=== PATIENT | female | born 1990 | race Caucasian/White ===

== ENCOUNTER 2018-04-17 21:40 | Emergency (ER) | END 2018-04-17 22:11 | disposition left against medical advice (07) ==

== ENCOUNTER 2018-12-17 14:13 | Emergency (ER) | payer OTHER ==
[~2018-12-17] VITALS: Ht 160 cm; Wt 51.2 kg
[~2018-12-17 14:13] MED LIST: NAPR-985 PO
[2018-12-17 14:22] VITALS: BP 128/71; PULSE 88; RESP 18; Ht 160 cm; Wt 51.2 kg
--- NOTE | 2018-12-17 15:21 | ERD ---
ER Documentation Chief Complaint Chief Complaint shooting pain in left arm since yesterday, denies injury HPI 28-year-old female with past medical history of anxiety presents with complaint of left arm pain since yesterday. Describes shooting pain up her left arm with intermittent numbness and tingling. She denies recent fall or injury. States she has been followed by PMD and has commenced work-up for some type of autoimmune disease questionable fibromyalgia. Has an upcoming appointment. Also with complaint of single episode of midsternal chest pain last night. States that she felt she was having anxiety attack. At time of evaluation patient in no acute distress answering all questions appropriately. She is concerned and asking for EKG as well as Henderson pill for her pain symptoms. ROS All systems reviewed and are negative except as per history of present illness. 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 Const: Well nourished, well developed, appears stated age Eyes: PERRL, no conjunctival injection HENT: NCAT, Neck supple without meningismus CV: RRR, Warm, well-perfused extremities RESP: CTAB, Unlabored respiratory effort GI: soft, non-tender, non-distended, no masses MSK: No gross deformities appreciated, left upper extremity SI LT, full range of motion, 5 out of 5 strength, good handgrip, distal pulses palpable external, negative Tinel sign Skin: Warm, dry. No rashes Neuro: grossly non focal Psych: Appropriate mood and affect. Results 24 hrs Current Medications Medications Dose Sig/Jordan Start Time Status Last (Trade) Ordered Route PRN Stop Time Admin Dose Reason Admin 1 tab ONCE ONCE 12/17/18 DC 12/17/18 Acetaminophen PO 15:30 15:19 / 12/17/18 15:31 Hydrocodone Bitart (Henderson (5/325)) Procedures/MDM 28-year-old female presents with complaint of left arm pain. Denies any history of injuries or fall. I have low suspicion for any acute process warranting further emergent care work-up. Patient is following with her PMD for work-up of autoimmune disease. She exhibits no symptoms consistent with such a diagnosis and just does not warrant further emergent work-up in this ED. EKG reviewed by myself and attending physician, no overt evidence of contiguous ST segment elevations, low suspicion for acute MD. No overt tachy- or bradydysrhythmias. Low suspicion for WPW, long QT, HOCM, Brugada after EKG review. DISPOSITION PLAN: We discussed follow up with the patient's primary care doctor within 24 to 48 hours. Patient counseled regarding my diagnostic impression and care plan. Prior to discharge all questions answered. Pt agrees with treatment plan and understands strict return precautions. Precautionary instructions provided including instructions to return to the ER if not improving or for any worsening or changing symptoms or concerns. Disclaimer: Inadvertent spelling and grammatical errors are likely due to EHR/dictation software use and do not reflect on the overall quality of patient care. Also, please note that the electronic time recorded on this note does not necessarily reflect the actual time of the patient encounter. Departure Diagnosis: Primary Impression: Pain of left arm Condition: Stable Patient Instructions: Anxiety Reaction Referrals: [facility] YOU HAVE RECEIVED A MEDICAL SCREENING EXAM AND THE RESULTS INDICATE THAT YOU DO NOT HAVE A CONDITION THAT REQUIRES URGENT TREATMENT IN THE EMERGENCY DEPARTMENT. FURTHER EVALUATION AND TREATMENT OF YOUR CONDITION CAN WAIT UNTIL YOU ARE SEEN IN YOUR DOCTORS OFFICE WITHIN THE NEXT 1-2 DAYS. IT IS YOUR RESPONSIBILITY TO MAKE AN APPOINTMENT FOR FOLOW-UP CARE. IF YOU HAVE A PRIMARY DOCTOR --you should call your primary doctor and schedule an appointment IF YOU DO NOT HAVE A PRIMARY DOCTOR YOU CAN CALL OUR PHYSICIAN REFERRAL HOTLINE AT IF YOU CAN NOT AFFORD TO SEE A PHYSICIAN YOU CAN CHOSE FROM THE FOLLOWING FORMERLY [facility], [facility] [address] [facility] [place] [address] [facility]. [place] [address] [facility] [address] [facility] [phone] [facility]. [facility] [address] Additional Instructions: Call your primary care doctor TOMORROW for an appointment during the next 2-3 days.See the doctor sooner or return here if your condition worsens before your appointment time. Continue to follow-up with your PMD for planned studies and work-up for autoimmune disorder. TAMARA HASKINS PA-C Dec 17, 2018 15:20
[2018-12-17] MEDS ORDERED: HYDROCODONE/APAP (5/325) TAB PO ONE (15:30)
== END 2018-12-17 16:47 | disposition home or self-care (01) ==
LOC: FTE 14:13
DX: M79.602 Pain in left arm (principal); R20.2 Paresthesia of skin
CPT/HCPCS: 93005